=== PATIENT | female | born 1990 | race Caucasian/White ===

== ENCOUNTER 2018-10-23 09:23 | Observation (INO) | payer MEDICAID ==
[~2018-10-23] VITALS: Ht 165.1 cm; Wt 67.6 kg
[2018-10-23] MEDS ORDERED: TERBUTALINE 1 MG/ML VIAL SUBQ SCH ×2 (09:55→10:57)
[2018-10-23] MEDS ORDERED: TERBUTALINE 1 MG/ML VIAL SUBQ ONE (10:15)
[2018-10-23] MEDS ORDERED: FERR-252 PO (10:21)
[2018-10-23] MEDS ORDERED: PREN-380 PO (10:21)
[2018-10-23] MEDS ORDERED: CALC500T2 PO (10:21)
--- NOTE | 2018-10-23 12:50 | NUR ---
PATIENT HAS BEEN SCREENED AND CATEGORIZED LOW NUTRITION RISK. PATIENT WILL BE SEEN WITHIN 7 DAYS OF ADMISSION. 10/30/18 ALEXIS HUBER MBA, RD
== END 2018-10-23 13:50 | disposition home or self-care (01) ==
LOC: MLD 09:23
PROVIDERS: ADMIT Obstetrics & Gynecology; ATTEND Obstetrics & Gynecology
DX: O62.9 Abnormality of forces of labor, unspecified (principal); Z3A.38 38 weeks gestation of pregnancy
CPT/HCPCS: 96372; G0378; J3105

== ENCOUNTER 2018-10-24 04:25 | Observation (INO) | payer MEDICAID ==
[~2018-10-24] VITALS: Ht 165.1 cm; Wt 58.5 kg
[~2018-10-24 04:25] MED LIST: CALC500T2 PO; FERR-252 PO; PREN-380 PO
[2018-10-24] MEDS ORDERED: LACTATED RINGERS 1,000 ML IV SCH (05:05)
[2018-10-24] MEDS ORDERED: TERBUTALINE 1 MG/ML VIAL SUBQ ONE (05:10)
[2018-10-24] MEDS: TERBUTALINE 1 MG/ML VIAL SUBQ SCH ×2 (05:20→06:28)
[2018-10-24 07:16] VITALS: BP 128/68
--- NOTE | 2018-10-24 09:34 | NUR ---
PATIENT HAS BEEN SCREENED AND CATEGORIZED LOW NUTRITION RISK. PATIENT WILL BE SEEN WITHIN 7 DAYS OF ADMISSION. 10/30/[address]
== END 2018-10-24 13:45 | disposition home or self-care (01) ==
LOC: MLD 04:25 → UNDOADMIN 04:25 → MLD 04:25
PROVIDERS: ADMIT Obstetrics & Gynecology; ATTEND Obstetrics & Gynecology
DX: O62.9 Abnormality of forces of labor, unspecified (principal); Z3A.38 38 weeks gestation of pregnancy
CPT/HCPCS: 76805; 81000; 96372; G0378; J3105; J7120; Q0092